=== PATIENT | male | born 1940 | race Caucasian/White ===

== ENCOUNTER 2017-06-19 13:02 | Outpatient (CLI) | payer MEDICARE ==
[2017-06-19 14:22] LABS: #Eosinphils 0.1 thou/uL (0.0-0.7); #Lymphocytes 1.4 thou/uL (1.20-3.40); #Monocytes 0.3 thou/uL (0.11-0.59); #Neutrophils 2.4 thou/uL (1.40-6.50); %Basophils 0.6 % (0.0-1.0); %Eosinophils 3.3 % (0.0-10.0); %Lymphocytes 33.4 % (21.0-51.0); %Monocytes 7.3 % (0.0-10.0); %Neutrophils 55.5 % (42.0-75.0); Hemoglobin 14.2 g/dL (14.0-18.0); Mean Corpuscular HGB CONC 32.6 g/dL (32.0-36.0); Mean Corpuscular Hemoglobin 28.7 pg (27.0-31.0); Mean Corpuscular Volume 88.1 fl (80.0-94.0); Mean Platelet Volume 6.5 fL (7.4-10.4); Platelet Count 281 thou/uL (130-400); RBC Distribution Width 13.2 % (11.5-14.5); Red Blood Cell (RBC) Count 4.97 mill/uL (4.70-6.10); White Blood Cell (WBC) Count 4.3 thou/uL (4.8-10.8)
[2017-06-19 14:45] LABS: Anion Gap 10 mmol/L (10-20); BUN (Urea Nitrogen) 13 mg/dL (8.4-25.7); Calc. Creatinine Clearance 0 mL/min (70-130); Calcium 8.9 mg/dL (7.8-10.44); Carbon Dioxide 27 mmol/L (23-31); Chloride 104 mmol/L (98-107); Estimated GFR-MDRD 85; Glucose 113 mg/dL (83-110); Potassium 4.2 mmol/L (3.5-5.1); Sodium 137 mmol/L (136-145)
== END 2017-06-19 13:03 | disposition home or self-care (01) ==
LOC: LABBT 13:02
PROVIDERS: ATTEND Specialist
DX: Z01.818 Encounter for other preprocedural examination (principal); K43.2 Incisional hernia without obstruction or gangrene
CPT/HCPCS: 80048; 85025; 93005; 93010

== ENCOUNTER 2017-06-25 08:52 | Day surgery (SDC) | payer MEDICARE ==
--- NOTE | 2017-06-14 10:39 | HP ---
HISTORY OF PRESENT ILLNESS: Nishant Woo is a 77-year-old male patient who presented in 09/2016 with a large hiatal hernia with a gastric volvulus. He underwent laparoscopic evaluation. Gastrosplenic ligaments were divided with a LigaSure laparoscopically. During the operation and mobilization due t o volvulus and changes, esophagus was entered during the dissection, this was converted to an open pr ocedure with repair of the esophagus over bougie and a Bibiana fundoplication and a Malecot tube gastr opexy performed. Hiatus were repaired with non-absorbable Bralon sutures. Patient did well postoper atively, but in December saw Dr. Venegas and colonoscopy performed was unremarkable. Upper endoscopy was performed and revealed a moderate small diaphragmatic hernia with obstruction and changes of ref lux. When he initially presented in September, he had a CAT scan of the abdomen and pelvis that was unrem arkable except for the gastric volvulus and large hiatal hernia. Patient had complained of some left lower quadrant pain, etiology of which is undetermined. As noted above, he had a recent colonoscopy . Patient presents to the office today with incisional hernia located between the umbilicus and xiphoid . 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 He is lifting and does exerc ise daily, although with ladder, dumbbells, and weights. Considering his gastropexy left upper quadr ant from his previous G-tube, plan is for open incisional hernia repair, most likely with mesh and under general anesthesia and TAP block. I think, this would be better for him than laparoscopic repair considering the gastropexy presence. He understands the risks of infection, bleeding, reoperation, recurrence of hernia and consents. MEDICATIONS: AndroGel, aspirin 81 mg a day, finasteride 5 mg a day, eyedrops daily. PAST SURGICAL HISTORY: Tonsillectomy, laparoscopy converted to open Bibiana fundoplication for gastri c volvulus and large hiatal hernia with esophageal repair. ALLERGIES: CODEINE. He is up to date on his colonoscopies as noted above. PHYSICAL EXAMINATION: VITAL SIGNS: 238 pounds, 6 feet 2, 181/96, 62 heart rate, 98.6 degrees. HEAD, EYES, EARS, NOSE, AND THROAT: Unremarkable. LUNGS: Clear to auscultation. CARDIAC: Regular rate and rhythm without murmur or gallop. ABDOMEN: Soft, nontender. Incisional hernia mid abdomen from the umbilicus and xiphoid. This is pr obably about 3-4 cm defect by exam, but it is difficult to discern due to his slight overweight. ASSESSMENT AND PLAN: 1. Incisional hernia. We will plan open mesh repair, general anesthesia, and transverse abdominis p salina block. We will admit him postoperatively. He understands the risks, benefits, and consents. 2. Gastroesophageal reflux disease with recurrent hiatal hernia, treated medically.
[2017-06-19 13:32] VITALS: BMI 29.5
[2017-06-25] MEDS ORDERED: CEFAZOLIN/Water 2 GM/20 ML SYRINGE ONE (09:19)
[2017-06-25] MEDS ORDERED: Ketorolac Tromethamine 30 MG/ML VIAL ONE (09:20)
[2017-06-25] MEDS ORDERED: Bupivacaine HCl 0.5%/Epinephrine 1:200,000/PF 30 ml Vial ONE ×3 (09:47→11:11)
[2017-06-25] MEDS ORDERED: Midazolam HCl 2 mg/2 ml Vial ONE ×2 (10:10→11:17)
[2017-06-25] MEDS ORDERED: Morphine 2 MG/ML SYRINGE ONE (10:10)
[2017-06-25] MEDS ORDERED: Dexamethasone 4 mg/ml Vial ONE (10:11)
[2017-06-25] MEDS ORDERED: Fentanyl 250 MCG/5 ML VIAL ONE ×2 (11:17→13:41)
[2017-06-25] MEDS ORDERED: Promethazine HCl 25 MG/ML VIAL SLOW IVP PRN (12:12)
[2017-06-25] MEDS ORDERED: Promethazine HCl 25 MG/ML VIAL IM PRN (12:12)
[2017-06-25] MEDS ORDERED: Ondansetron HCl/PF 4 MG/2 ML Vial IVP PRN (12:12)
--- NOTE | 2017-06-25 13:39 | OP ---
DATE OF PROCEDURE: 06/25/2017 PREOPERATIVE DIAGNOSES: Incisional hernia, 4 cm defect with smaller defects above and below mid loca mulugeta midway between the umbilicus and xiphoid from a previous laparotomy. POSTOPERATIVE DIAGNOSES: Incisional hernia, 4 cm defect with smaller defects above and below mid loc ated midway between the umbilicus and xiphoid from a previous laparotomy. PROCEDURE PERFORMED: Transrectus abdominis mesh repair with retrorectus Marlex mesh extending from t he costal margins to below the umbilicus. SURGEON: Dr. Ciro Sharp ANESTHESIA: General tap block. PROCEDURE: The patient was taken to the operating room where under general anesthesia, abdomen was c lipped of hair, prepared with ChloraPrep, draped in routine fashion. Tap blocks have been placed pre operatively. Incision was made in the mid abdomen between xiphoid and umbilicus and extended cephala d and caudally as necessary. His other hernia defects appreciated. Fascia identified, viscera kept free of harm. There were some omental adhesions, but no visceral adhesions. These were freed from t he abdominal wall using cautery. The posterior rectus sheath both sides were entered from the midlin e the posterior rectus sheath from the rectus muscle extended laterally to the convalescen ce of the sheaths. The posterior fascia was then approximated with continuous suture of #1 PDS. The mesh was then tailored to cover the entire posterior rectus sheath extending to the subxiphoid retro rectus sheath and below the umbilicus making a split about the umbilicus to accommodate it. The mesh was then secured on either side with interrupted sutures of 0 PDS to the anterior fascia. The midli ne fascia was then approximated with interrupted [id number] sutures of 0 PDS pop-offs incorporat ing mesh into the approximation. Subcutaneous tissues irrigated. Hemostasis gained with the cautery . The subcutaneous tissues approximated with 3-0 Monocryl, skin with vanessa and sterile dressings a pplied. Patient tolerated the procedure well.
[2017-06-25] MEDS ORDERED: Propofol 200 MG/20 ML VIAL ONE (14:37)
[2017-06-25] MEDS ORDERED: Lidocaine 1% PF 5 ML VIAL ONE (14:37)
== END 2017-06-25 15:38 | disposition home or self-care (01) ==
LOC: SDC 08:52
PROVIDERS: ATTEND Specialist
PROC: 0WUF0JZ Supplement Abdominal Wall with Synthetic Substitute, Open Approach (ICD-10-PCS; principal; 2017-06-25)
DX: K43.2 Incisional hernia without obstruction or gangrene (principal); Z79.82 Long term (current) use of aspirin; Z79.890 Hormone replacement therapy; Z79.899 Other long term (current) drug therapy; Z88.5 Allergy status to narcotic agent; Z91.02 Food additives allergy status; Z98.890 Other specified postprocedural states
CPT/HCPCS: 49560; 49568; 96374; C1781; J0131; J0670; J1100; J1885; J2001; J2250; J2270; J2704; J3010

== ENCOUNTER 2022-11-09 11:01 | Inpatient (IN) | payer MEDICARE ==
[2022-11-09 12:12] LABS: #Eosinphils 0.2 thou/uL (0.0-0.7); #Monocytes 0.5 thou/uL (0.11-0.59); #Neutrophils 2.8 thou/uL (1.40-6.50); %Basophils 0.8 % (0.0-1.0); %Eosinophils 4.6 % (0.0-10.0); %Lymphocytes 28.3 % (21.0-51.0); %Monocytes 10.4 % (0.0-10.0); %Neutrophils 55.5 % (42.0-75.0); Hematocrit 39.3 % (42.0-52.0); Hemoglobin 12.8 g/dL (14.0-18.0); Mean Corpuscular HGB CONC 32.6 g/dL (32.0-36.0); Mean Corpuscular Hemoglobin 28.5 pg (27.0-31.0); Mean Corpuscular Volume 87.5 fl (78.0-98.0); Mean Platelet Volume 9.3 fL (7.4-10.4); Platelet Count 249 10x3/uL (130-400); RBC Distribution Width 14.1 % (11.5-14.5); Red Blood Cell (RBC) Count 4.49 mill/uL (4.70-6.10)
[2022-11-09] MEDS ORDERED: Aspirin Chewable 81 MG TAB ONE (12:21)
[2022-11-09 12:38] LABS: ALT (SGPT) 11 U/L (8-55); AST (SGOT) 19 U/L (5-34); Albumin 3.9 g/dL (3.4-4.8); Alkaline Phosphatase 52 U/L (40-110); Anion Gap 15 mmol/L (10-20); BUN (Urea Nitrogen) 19 mg/dL (8.4-25.7); Bilirubin, Total 0.4 mg/dL (0.2-1.2); Calc. Creatinine Clearance 0 mL/min (70-130); Calcium 9.1 mg/dL (7.8-10.44); Carbon Dioxide 25 mmol/L (23-31); Chloride 105 mmol/L (98-107); Estimated GFR 85; Globulin 2.4 g/dL (2.4-3.5); Glucose 103 mg/dL (83-110); Potassium 4.6 mmol/L (3.5-5.1); Protein, Total 6.3 g/dL (5.8-8.1); Sodium 140 mmol/L (136-145)
[2022-11-09 13:05] LABS: CKMB 1.2 ng/mL (0-6.6)
[2022-11-09] MEDS ORDERED: Nitroglycerin 0.4 MG TAB (25 Tab Bottle) SL PRN (14:11)
[2022-11-09] MEDS ORDERED: Ondansetron PF 4 MG/2 ML Vial IVP PRN (14:11)
[2022-11-09] MEDS ORDERED: Ondansetron ODT 4 MG TAB PO PRN (14:11)
[2022-11-09] MEDS ORDERED: Heparin 25,000 units/D5W 500 ML IVPB SCH (14:45)
[2022-11-09] MEDS ORDERED: Heparin 10,000 UNITS/ 10 ML VIAL SLOW IVP SCH (14:45)
[2022-11-09 14:58] LABS: Hemoglobin 12.5 g/dL (14.0-18.0); Platelet Count 213 10x3/uL (130-400)
[2022-11-09 15:09] LABS: INR-International Normal Ratio 0.9; PTT 23.7 sec (22.9-36.1); Prothrombin Time 12.9 sec (12.0-14.7)
[2022-11-09 15:19] LABS: Magnesium 1.6 mg/dL (1.6-2.6)
[2022-11-09 15:23] LABS: Troponin I 0.411 ng/mL (< 0.028)
[2022-11-09 19:33] LABS: Critical Call Chem Troponin I RESULT DECREASING; Troponin I 0.411 ng/mL (< 0.028)
[2022-11-09 21:08] VITALS: BMI 27.0
[2022-11-10] MEDS: Sodium Chloride 0.9% 1,000 ML IV SCH ×2 (00:51→14:19)
[2022-11-10 05:58] LABS: #Eosinphils 0.2 thou/uL (0.0-0.7); #Monocytes 0.4 thou/uL (0.11-0.59); #Neutrophils 2.1 thou/uL (1.40-6.50); %Basophils 0.8 % (0.0-1.0); %Eosinophils 4.3 % (0.0-10.0); %Lymphocytes 30.9 % (21.0-51.0); %Monocytes 10.6 % (0.0-10.0); %Neutrophils 52.9 % (42.0-75.0); Hematocrit 34.8 % (42.0-52.0); Hemoglobin 11.2 g/dL (14.0-18.0); Mean Corpuscular HGB CONC 32.2 g/dL (32.0-36.0); Mean Corpuscular Hemoglobin 28.4 pg (27.0-31.0); Mean Corpuscular Volume 88.3 fl (78.0-98.0); Mean Platelet Volume 9.4 fL (7.4-10.4); Platelet Count 215 10x3/uL (130-400); Red Blood Cell (RBC) Count 3.94 mill/uL (4.70-6.10)
[2022-11-10 06:19] LABS: Anion Gap 10 mmol/L (10-20); BUN (Urea Nitrogen) 17 mg/dL (8.4-25.7); Calc. Creatinine Clearance 90 mL/min (70-130); Calcium 8.8 mg/dL (7.8-10.44); Carbon Dioxide 27 mmol/L (23-31); Chloride 107 mmol/L (98-107); Estimated GFR 87; Glucose 105 mg/dL (83-110); Potassium 3.9 mmol/L (3.5-5.1); Sodium 140 mmol/L (136-145)
[2022-11-10] MEDS: Aspirin Chewable 81 MG TAB PO SCH (06:25)
[2022-11-10] MEDS ORDERED: Lidocaine 1% (PF) 30 ML VIAL ONE (07:03)
[2022-11-10] MEDS ORDERED: Heparin 10,000 UNITS/ 10 ML VIAL ONE ×2 (07:07→09:00)
[2022-11-10] MEDS ORDERED: Nitroglycerin 50 MG/250 ML BOT 0 ML ONE (07:07)
[2022-11-10] MEDS ORDERED: Midazolam HCl 2 mg/2 ml Vial ONE (07:53)
[2022-11-10] MEDS ORDERED: fentaNYL 50 mcg/mL 1 mL Vial ONE ×2 (07:53→09:00)
[2022-11-10] MEDS ORDERED: TICAGRELOR 90 MG TABLET ONE (08:50)
[2022-11-10] MEDS ORDERED: Magnesium 2 GM/50 ML(in water) 2 GM in Premix Bag 1 BAG IVPB SCH (09:00)
[2022-11-10] MEDS ORDERED: Sodium Chloride 0.9% 500 ML IV SCH (09:30)
[2022-11-10] MEDS ORDERED: Magnesium 2 GM/50 ML BAG (IN WATER) ONE (10:37)
[2022-11-10] MEDS: Acetaminophen 325 MG TAB PO PRN ×2 (10:41→23:50)
[2022-11-10] MEDS ORDERED: HYDROcodone/Acetaminophen 5/325 mg Tablet PO PRN (13:59)
[2022-11-10 16:21] LABS: Magnesium 2.1 mg/dL (1.6-2.6)
[2022-11-10] MEDS ORDERED: Nabumetone 500 MG TAB PO SCH (16:45)
[2022-11-10] MEDS: Carvedilol 3.125 MG TAB PO SCH (17:30)
[2022-11-10] MEDS: Finasteride 5 MG TAB PO SCH (20:08)
[2022-11-10] MEDS: TICAGRELOR 90 MG TABLET PO SCH (20:08)
[2022-11-10] MEDS: Rosuvastatin 10 MG TAB PO SCH (20:08)
[2022-11-11 04:52] LABS: #Eosinphils 0.1 thou/uL (0.0-0.7); #Monocytes 0.5 thou/uL (0.11-0.59); #Neutrophils 4.4 thou/uL (1.40-6.50); %Basophils 0.5 % (0.0-1.0); %Eosinophils 2.1 % (0.0-10.0); %Lymphocytes 18.5 % (21.0-51.0); %Monocytes 7.6 % (0.0-10.0); %Neutrophils 70.8 % (42.0-75.0); Hematocrit 38.6 % (42.0-52.0); Hemoglobin 12.4 g/dL (14.0-18.0); Mean Corpuscular HGB CONC 32.1 g/dL (32.0-36.0); Mean Corpuscular Hemoglobin 28.5 pg (27.0-31.0); Mean Corpuscular Volume 88.7 fl (78.0-98.0); Mean Platelet Volume 9.3 fL (7.4-10.4); Platelet Count 228 10x3/uL (130-400); RBC Distribution Width 14.2 % (11.5-14.5); Red Blood Cell (RBC) Count 4.35 mill/uL (4.70-6.10); White Blood Cell (WBC) Count 6.2 10x3/uL (4.8-10.8)
[2022-11-11 05:15] LABS: ALT (SGPT) 10 U/L (8-55); AST (SGOT) 19 U/L (5-34); Albumin 3.6 g/dL (3.4-4.8); Alkaline Phosphatase 51 U/L (40-110); Anion Gap 12 mmol/L (10-20); BUN (Urea Nitrogen) 16 mg/dL (8.4-25.7); Bilirubin, Total 0.7 mg/dL (0.2-1.2); Calc. Creatinine Clearance 75 mL/min (70-130); Calcium 8.7 mg/dL (7.8-10.44); Carbon Dioxide 23 mmol/L (23-31); Chloride 105 mmol/L (98-107); Estimated GFR 74; Globulin 2.5 g/dL (2.4-3.5); Glucose 120 mg/dL (83-110); Potassium 4.1 mmol/L (3.5-5.1); Protein, Total 6.1 g/dL (5.8-8.1); Sodium 136 mmol/L (136-145)
[2022-11-11] MEDS: TICAGRELOR 90 MG TABLET PO SCH ×2 (08:52→21:01)
[2022-11-11] MEDS: Aspirin Chewable 81 MG TAB PO SCH (08:52)
[2022-11-11] MEDS: Carvedilol 3.125 MG TAB PO SCH ×2 (08:52→17:52)
[2022-11-11] MEDS ORDERED: Lisinopril 2.5 MG TAB PO SCH (09:00)
[2022-11-11 16:27] LABS: Magnesium 1.9 mg/dL (1.6-2.6)
[2022-11-11] MEDS: Rosuvastatin 10 MG TAB PO SCH (21:01)
[2022-11-11] MEDS: Finasteride 5 MG TAB PO SCH (21:02)
[2022-11-12 05:55] LABS: Anion Gap 12 mmol/L (10-20); BUN (Urea Nitrogen) 20 mg/dL (8.4-25.7); Calc. Creatinine Clearance 88 mL/min (70-130); Calcium 8.8 mg/dL (7.8-10.44); Carbon Dioxide 23 mmol/L (23-31); Chloride 107 mmol/L (98-107); Estimated GFR 86; Glucose 116 mg/dL (83-110); Potassium 3.7 mmol/L (3.5-5.1); Sodium 138 mmol/L (136-145)
[2022-11-12 07:20] VITALS: BP 144/82; TEMP 97.7
[2022-11-12] MEDS ORDERED: Lisinopril 10 MG TAB PO SCH (09:00)
[2022-11-12] MEDS: Aspirin Chewable 81 MG TAB PO SCH (09:15)
[2022-11-12] MEDS: Carvedilol 3.125 MG TAB PO SCH (09:15)
[2022-11-12] MEDS: TICAGRELOR 90 MG TABLET PO SCH (09:15)
[2022-11-12] MEDS: Acetaminophen 325 MG TAB PO PRN (11:09)
== END 2022-11-12 11:48 | disposition home or self-care (01) | DRG 247 ==
LOC: ERS 11:01 → ERHOLD 13:53 → 2SW 14:12 → OBSVTOIN 11-10 08:54
PROVIDERS: ADMIT Family Medicine; ATTEND Internal Medicine
PROC: 027035Z Dilation of Coronary Artery, One Artery with Two Drug-eluting Intraluminal Devices, Percutaneous Approach (ICD-10-PCS; principal; 2022-11-10)
PROC: 4A023N7 Measurement of Cardiac Sampling and Pressure, Left Heart, Percutaneous Approach (ICD-10-PCS; 2022-11-10)
PROC: B2111ZZ Fluoroscopy of Multiple Coronary Arteries using Low Osmolar Contrast (ICD-10-PCS; 2022-11-10)
PROC: B2151ZZ Fluoroscopy of Left Heart using Low Osmolar Contrast (ICD-10-PCS; 2022-11-10)
DX: I21.4 Non-ST elevation (NSTEMI) myocardial infarction (principal); E11.9 Type 2 diabetes mellitus without complications; I10 Essential (primary) hypertension; E78.5 Hyperlipidemia, unspecified; N40.0 Benign prostatic hyperplasia without lower urinary tract symptoms; E78.00 Pure hypercholesterolemia, unspecified; I44.1 Atrioventricular block, second degree; E83.42 Hypomagnesemia; R00.1 Bradycardia, unspecified; Z88.8 Allergy status to other drugs, medicaments and biological substances; Z88.5 Allergy status to narcotic agent; Z79.82 Long term (current) use of aspirin; Z79.899 Other long term (current) drug therapy; Z98.890 Other specified postprocedural states; Z90.49 Acquired absence of other specified parts of digestive tract
CPT/HCPCS: 36415; 36416; 71045; 80048; 80053; 82553; 83735; 84443; 84484; 85025; 85347; 85610; 85730; 93005; 93010; 93306; 93798; 96372; C1725; C1760; C1769; C1874; C1887; G0378; J1644; J1650; J2001; J2250; J3010; J3475; J7030; J7050; Q0162